=== PATIENT | female | born 1950 | race Caucasian/White ===

== ENCOUNTER 2017-05-05 15:31 | Emergency (ER) | payer MEDICARE, OTHER ==
--- NOTE | 2017-05-05 18:09 | XRAY Preliminary Report ---
Exam: XR Elbow 3 View RT IMPRESSION: Comminuted, considerably displaced displaced intra-articular radial head fracture. [facility] SITE ID: [id number]
--- NOTE | 2017-05-05 18:11 | XRAY Report ---
EXAM: RIGHT ELBOW RADIOGRAPHY EXAM DATE: 05/05/2017 05:49 PM. CLINICAL HISTORY: Injury right ue, with tenderness at elbow. COMPARISON: None. TECHNIQUE: 4 views views. FINDINGS: Bones: Comminuted intra-articular fracture of the radial head with significant displacement of fractu re fragments. No other fracture seen. Joints: Normal. No effusion. No subluxation. Soft Tissues: Normal. No soft tissue swelling. IMPRESSION: Comminuted, considerably displaced displaced intra-articular radial head fracture. [facility] Referring Provider Line: [phone] SITE ID: [id number]
--- NOTE | 2017-05-05 18:56 | ED Physician Documentation ---
PD HPI UPPER EXT INJURY - Stated complaint Stated Complaint: R ARM PAIN - Chief complaint Chief Complaint: Ext Problem - History obtained from History obtained from: Patient, Family (daughter) - History of Present Illness Location: Right, Elbow Type of injury: Fall Where injury occurred: Home Timing - onset: Today (just prior to arrival.) Worsened by: Moving, Palpating Similar symptoms before: Has not had sx before - Additonal information Additional information: The patient is a 67-year-old female who was playing water guns with her grandchildren when she slipped and fell, impacting her right arm. She presents now with pain in her right elbow. She denies any other injuries. She is right- hand dominant. She is visiting here from [place], and plans to fly back in 2 days. Review of Systems Constitutional: denies: Fever Cardiac: denies: Chest pain / pressure Respiratory: denies: Dyspnea, Cough GI: denies: Abdominal Pain, Nausea, Vomiting Skin: denies: Abrasion (s), Laceration (s) Musculoskeletal: reports: Extremity pain (right upper extremity). denies: Neck pain, Back pain Neurologic: denies: Focal weakness, Numbness, Headache, Head injury PD PAST MEDICAL HISTORY - Past Medical History Past Medical History: Yes Cardiovascular: Hypertension, High cholesterol Endocrine/Autoimmune: HyPOthyroidism Psych: Anxiety - Past Surgical History /CLERICAL ADJUSTER: Hysterectomy HEENT: Tonsil/Adenoidectomy - Present Medications Home Medications: Ambulatory Orders Medication Instructions Recorded Confirmed Aspirin 81 mg PO DAILY 05/05/17 05/05/17 Cholecalciferol (Vitamin D3) 100 mg PO DAILY 05/05/17 05/05/17 [Vitamin D3] Citalopram [CeleXA] 50 mg PO DAILY 05/05/17 05/05/17 HYDROcod/ACETAM 5/325 [[place] 5/325] 1 - 2 ea PO Q6H PRN #20 tablet 05/05/17 Levothyroxine [Synthroid] 100 mcg PO QDAC 05/05/17 05/05/17 Losartan [Cozaar] 50 mg PO BID 05/05/17 05/05/17 Simvastatin 10 mg PO DAILY 05/05/17 05/05/17 - Allergies Allergies/Adverse Reactions: Allergies Allergy/AdvReac Type Severity Reaction Status Date / Time Penicillins Allergy Unknown Verified 05/05/17 15:38 - Social History Does the pt smoke?: No Smoking Status: Never smoker Does the pt drink ETOH?: Yes - Immunizations Immunizations are current?: Yes PD ED PE NORMAL - Vitals Vital signs reviewed: Yes (normal) - General General: Alert and oriented X 3, Well developed/nourished, Other (Protecting her right arm from movement.) - HEENT HEENT: Atraumatic, EOMI - Neck Neck: No bony TTP, No JVD - Cardiac Cardiac: RRR, No murmur - Respiratory Respiratory: No respiratory distress, Clear bilaterally - Abdomen Abdomen: Soft, Non tender - Back Back: No spinal TTP - Derm Derm: No rash - Extremities Extremities: Other (There is tenderness to palpation over the radial aspect of the right elbow. She resists flexion, extension, supination, or pronation at the elbow. There is no tenderness of the wrist or forearm. Distal neurovascular is intact.) - Neuro Neuro: Alert and oriented X 3, No motor deficit, No sensory deficit Results - Vitals Vitals: Vital Signs - 24 hr 05/05/17 05/05/17 15:34 19:04 Temperature 36.4 C L 37.2 C Heart Rate 88 69 Respiratory 16 18 Rate Blood Pressure 107/61 128/75 O2 Saturation 100 97 Oxygen O2 Source Room air - Rads (name of study) right elbow Radiology: Prelim report reviewed, EMP read contemporaneously, See rad report ( Comminuted, considerably displaced intra-articular radial head fracture.) Procedures - Splint (location) right upper extremity Splint applied by: Physician, Tech Type of splint: Fiberglass, Long arm Other: Patient tolerated well, No complications, Neurovascular intact, Sling provided PD MEDICAL DECISION MAKING - ED course Complexity details: reviewed results, re-evaluated patient, considered differential, d/w patient, d/w family ED course: The patient's presentation is significant for comminuted, displaced right radial head fracture. Treatment in the emergency department included application of a long-arm posterior splint and application of an arm sling. She is being discharged with prescription for Vicodin, 20 tablets. I discussed her fracture with the Dr. Mao, orthopedic surgeon manager radiation, who agrees that it would be all right for her to follow up with her orthopedist upon return to [place] in 2 days. A DVD copy of her imaging study was provided to her. I discussed with her and her family the expected course of injury, importance of urgent orthopedic follow-up, as well as potentially worrisome signs or symptoms that should prompt re-evaluation in the emergency department. Departure - Departure Disposition: 01 Home, Self Care Clinical Impression: Fracture of radial head, right, closed Qualifiers: Encounter type: initial encounter Fracture alignment: displaced Qualified Code( s): S52.121A - Displaced fracture of head of right radius, initial encounter for closed fracture Condition: Stable Instructions: ED Fx Radial Head Prescriptions: HYDROcod/ACETAM 5/325 [[place] 5/325] 1 - 2 ea PO Q6H PRN #20 tablet PRN Reason: Pain Comments: Apply ice pack to your right elbow intermittently for the next 3 or 4 days. You can use ibuprofen, up to 800 mg 3 times daily for its anti-inflammatory effect. You can use Vicodin as prescribed if needed for pain. Use the arm sling to provide comfort. Keep the splint dry. Follow-up with orthopedics when you return home to [place]. Take the disc with the imaging with you to orthopedic appointment. Return to the emergency department if you develop markedly increasing pain, or otherwise worsening symptoms. Discharge Date/Time: 05/05/17 19:04
[2017-05-05 19:05] VITALS: BP 128/75
== END 2017-05-05 19:04 | disposition home or self-care (01) ==
LOC: ED 15:31
DX: S52.121A Displaced fracture of head of right radius, initial encounter for closed fracture (principal); W01.0XXA Fall on same level from slipping, tripping and stumbling without subsequent striking against object, initial encounter; Y93.89 Activity, other specified; Y92.009 Unspecified place in unspecified non-institutional (private) residence as the place of occurrence of the external cause; I10 Essential (primary) hypertension; Z79.82 Long term (current) use of aspirin
CPT/HCPCS: 29105; 99283